=== PATIENT | female | born 1995 | race Caucasian/White ===

== ENCOUNTER 2016-10-12 08:35 | Emergency (ER) | payer OTHER ==
[2016-10-12 08:39] VITALS: BP 124/66; PULSE 104; RESP 20; TEMP 101.4
[2016-10-12] MEDS ORDERED: ACETAMINOPHEN TAB 500 MG TAB PO STA (09:02)
[2016-10-12] MEDS ORDERED: IBUPROFEN 600 MG TAB PO STA (09:02)
--- NOTE | 2016-10-12 09:05 | ED ---
URI HPI - General Chief Complaint: Upper Respiratory Infection Stated Complaint: Congestion Time Seen by Provider: 10/12/16 08:42 Source: patient Mode of arrival: ambulatory Limitations: no limitations - History of Present Illness Initial Comments: 20-year-old female patient presents to emergency department today for complaints of cough, congestion, sore throat, and fever that started on . Patient states that she was seen at [facility] yesterday she was swabbed for influenza which was negative. She is upset because they did not give her antibiotics and told her she only had a virus. Patient states that she did take Motrin consistently throughout the day yesterday, but woke up feeling worse today. Patient states that her chest feels tight, she is coughing up green sputum, and it hurts to cough. Patient denies any weakness, dizziness, abdominal pain, nausea, vomiting, back pain, dysuria, urinary urgency , urinary frequency, constipation, or diarrhea. Patient is currently on her menstrual cycle. - Related Data Home Medications Medication Instructions Recorded Confirmed Ibuprofen [Motrin] 1 tab PO TID PRN 04/02/16 04/02/16 Previous Rx's Medication Instructions Recorded Amoxicillin/Potassium Clav 1 each PO Q12HR #10 tab 04/02/16 [Augmentin 875-125 Tablet] Acetaminophen [Tylenol] 1,000 mg PO Q6H PRN #30 tab 10/12/16 Ibuprofen [Motrin] 600 mg PO Q6HR PRN #30 tab 10/12/16 Oseltamivir [Tamiflu] 75 mg PO Q12HR #10 cap 10/12/16 Allergies Allergy/AdvReac Type Severity Reaction Status Date / Time No Known Allergies Allergy Verified 10/12/16 08:39 Review of Systems ROS Statement: Those systems with pertinent positive or pertinent negative responses have been documented in the HPI. ROS Other: All systems not noted in ROS Statement are negative. Past Medical History Past Medical History: No Reported History History of Any Multi-Drug Resistant Organisms: None Reported Past Surgical History: Tonsillectomy Past Psychological History: Anxiety Smoking Status: Never smoker Past Alcohol Use History: None Reported Past Drug Use History: None Reported General Exam Limitations: no limitations General appearance: alert, in no apparent distress Eye exam: Present: normal appearance, PERRL, EOMI. Absent: scleral icterus, conjunctival injection, periorbital swelling ENT exam: Present: normal exam, mucous membranes moist, TM's normal bilaterally. Absent: normal oropharynx (Oropharyngeal erythema) Neck exam: Present: normal inspection. Absent: tenderness, meningismus, lymphadenopathy Respiratory exam: Present: normal lung sounds bilaterally. Absent: respiratory distress, wheezes, rales, rhonchi, stridor Cardiovascular Exam: Present: regular rate, normal rhythm, normal heart sounds. Absent: systolic murmur, diastolic murmur, rubs, gallop, clicks GI/Abdominal exam: Present: soft, normal bowel sounds. Absent: distended, tenderness, guarding, rebound, rigid Extremities exam: Present: normal inspection, full ROM, normal capillary refill. Absent: tenderness, pedal edema, joint swelling, calf tenderness Back exam: Present: normal inspection. Absent: CVA tenderness (R), CVA tenderness (L) Neurological exam: Present: alert, oriented X3, CN II-XII intact Psychiatric exam: Present: normal affect, normal mood Skin exam: Present: warm, dry, intact, normal color. Absent: rash Course Vital Signs 10/12/16 08:38 Temperature 101.4 F H Pulse Rate 104 H Respiratory 20 Rate Blood Pressure 124/66 O2 Sat by Pulse 99 Oximetry Medical Decision Making - Medical Decision Making 20-year-old female patient came in with complaints of upper respiratory symptoms and fever. X-ray of the chest was negative. Strep screen was negative. Patient was swabbed for influenza and was positive for influenza A. Patient be given a prescription for Tamiflu and discharged home to increase fluid intake and continue Tylenol and Motrin for pain and fever control. Patient instructed to return for any new, worsening, or concerning symptoms. Patient instructed to follow-up with primary care physician in one to 2 days. Patient verbalizes understanding and agrees with this plan. - Lab Data Lab Results 10/12/16 Range/Units 08:45 Influenza Type A RNA Detected H (Not Detectd) Influenza Type B (PCR) Not Detected (Not Detectd) - Radiology Data Radiology results: image reviewed Chest x-ray negative for any acute cardiopulmonary process. Disposition Clinical Impression: Influenza A Disposition: HOME SELF-CARE Condition: Stable Instructions: Influenza (ED) Additional Instructions: Increase clear fluids. Take Tylenol Motrin for pain or fever control. Complete Tamiflu prescription. Follow-up with primary care physician. Return for any worsening, new, or concerning symptoms. Prescriptions: Acetaminophen [Tylenol] 1,000 mg PO Q6H PRN #30 tab PRN Reason: Fever Ibuprofen [Motrin] 600 mg PO Q6HR PRN #30 tab PRN Reason: fever Oseltamivir [Tamiflu] 75 mg PO Q12HR #10 cap Referrals: Devon Petersen DO [Primary Care Provider] - 1-2 days Time of Disposition: 09:26
--- NOTE | 2016-10-12 09:31 | XR ---
EXAMINATION TYPE: XR chest 2V DATE OF EXAM ORDERED: 10/12/2016 9:22 AM HISTORY: Pain. REFERENCE: None. FINDINGS: The lungs are clear. Pleural spaces are clear. Heart size is normal. IMPRESSION: NORMAL CHEST.
== END 2016-10-12 09:33 | disposition home or self-care (01) ==
LOC: EC 08:35
DX: J10.1 Influenza due to other identified influenza virus with other respiratory manifestations (principal)
CPT/HCPCS: 71020; 87081; 87430; 87502; 99283

== ENCOUNTER → 2017-04-08 | Outpatient (CLI) | payer OTHER ==
--- NOTE | 2017-04-08 14:35 | XR ---
EXAMINATION TYPE: XR calcaneus 2V RT DATE OF EXAM: 04/08/2017 COMPARISON: NONE HISTORY: Right heel pain TECHNIQUE: 2 views are submitted FINDINGS: Osseous structures intact. Joint spaces preserved. IMPRESSION: 1. No osseous abnormality. If symptoms persist consider MRI.
== END ==
LOC: RADXRMAIN 14:09
PROVIDERS: ATTEND Family Medicine
DX: M79.671 Pain in right foot (principal)

== ENCOUNTER 2017-09-09 10:34 | Day surgery (SDC) | payer OTHER ==
[2017-09-05 15:33] VITALS: BMI 36.6
[~2017-09-09 10:34] MED LIST: HEPARIN SODIUM,PORCINE 5,000 UNIT/ML 1 ML VIAL SQ ONE; HYDROmorphone 0.5 MG/0.5 ML SYRINGE IVP PRN; LACTATED RINGERS 1,000 ML IV SCH; MIDAZOLAM 2 MG/2 ML VIAL IV PRN; ONDANSETRON 4 MG/2 ML VIAL IVP ONE; Pre Op ABX Message 1 EACH MISC MISCELLANE ONE
[2017-09-09] MEDS ORDERED: LIDOCAINE 1% 20 ML VIAL (10MG/ML) FOR IV START INTRADERMA ONE (12:44)
[2017-09-09] MEDS ORDERED: DEXAMETHASONE SOD PHOSPHATE 10 MG/ML 1 ML VIAL IV ONE (13:04)
[2017-09-09] MEDS ORDERED: HEPARIN SODIUM,PORCINE 5,000 UNIT/ML 1 ML VIAL SQ ONE (13:30)
[2017-09-09] MEDS ORDERED: SUCCINYLCHOLINE CHLORIDE 100 MG/5 ML SYR IV ONE (15:50)
[2017-09-09] MEDS ORDERED: fentaNYL (PF) 50 MCG/ML 2 ML AMP ONE (15:50)
[2017-09-09] MEDS ORDERED: KETOROLAC 30 MG/ML 1 ML VIAL ONE (15:50)
[2017-09-09] MEDS ORDERED: LIDOCAINE 1% INJ 10MG/ML (20 ML MDV) ONE (15:50)
[2017-09-09] MEDS ORDERED: MIDAZOLAM 2 MG/2 ML VIAL ONE (15:50)
[2017-09-09] MEDS ORDERED: PROPOFOL 10 MG/ML 20 ML VIAL IV ONE (15:50)
[2017-09-09] MEDS ORDERED: LACTATED RINGERS 1,000 ML IV ONE (16:00)
[2017-09-09] MEDS ORDERED: SODIUM CHLORIDE 0.9% 50 ML with ceFAZolin 2,000 MG IV ONE ×2 (16:00)
--- NOTE | 2017-09-09 16:00 | P.PN ---
Progress Note - Text Patient also complains of a cystic lesion on the left lower abdomen. This is going to be excised as well. We've discussed risks and benefits and she wishes to proceed.
[2017-09-09] MEDS ORDERED: LIDOCAINE 1% INJ 10MG/ML (20 ML MDV) SQ ONE (16:10)
--- NOTE | 2017-09-09 16:31 | P.PCN ---
Date of Procedure: 09/09/17 Preoperative Diagnosis: cystic lesion Right breast and left lower abdomen Postoperative Diagnosis: same Procedure(s) Performed: excision of cystic lesions left lower abdomen and right breast Anesthesia: SMOOTH Surgeon: Felipa Schrader Estimated Blood Loss (ml): 5 IV fluids (ml): 600 Pathology: other (cystic lesions) Condition: stable Disposition: PACU Indications for Procedure: cystic lesions which intermittently get infected Operative Findings: cystic lesions times two Description of Procedure: Patient was taken to the operating room and following induction of anesthesia the right breast and left lower abdomen were prepped and draped in a sterile fashion. Incision was made around the lesion of the left lower abdomen patient performed. This was approximately 2.5 cm in size. Excision was through the skin and subcutaneous tissue around the cystic area. Following this the wound was irrigated deep tissues were closed with 2-0 Vicryl suture in the skin was closed with nylon suture. The breast was then approached. The breast lesion was addressed. Wide excision of the lesion was performed. After this the wound was irrigated. Deep tissues were closed using a Vicryl suture. Skin was closed using a nylon suture. The lesion size was 2-1/2 cm. All instrument and sponge counts were correct at the end of the case.
--- NOTE | 2017-09-09 16:32 | P.DS ---
Providers Attending physician: Felipa Schrader Primary care physician: Devon Petersen Plan - Discharge Summary New Discharge Prescriptions: No Action Ibuprofen [Motrin] 1 tab PO TID PRN PRN Reason: Pain Ranitidine HCl [Zantac] 75 mg PO BID PRN PRN Reason: GERD Dextroamphetamine/Amphetamine [Adderall] 30 mg PO BID Discharge Medication List Ibuprofen [Motrin] 1 tab PO TID PRN 04/02/16 [History] Dextroamphetamine/Amphetamine [Adderall] 30 mg PO BID 09/05/17 [History] Ranitidine HCl [Zantac] 75 mg PO BID PRN 09/05/17 [History] Activity/Diet/Wound Care/Special Instructions: do not drive today may shower after 24 hours Discharge Disposition: HOME SELF-CARE
[2017-09-09 16:41] VITALS: TEMP 98.4
[2017-09-09 17:23] VITALS: PULSE 90; RESP 18
[2017-09-09 17:38] VITALS: BP 110/78
== END 2017-09-09 17:45 | disposition home or self-care (01) ==
LOC: OR 10:34
PROVIDERS: ATTEND Surgery
DX: L72.0 Epidermal cyst (principal)
CPT/HCPCS: 19120; 11403; 81025; 88304; 87070; 87205; J2250; J1644; J1100; J2405; J2001; J3010; J1885; J0690; J0330; J2704

== ENCOUNTER → 2018-06-17 | Outpatient (CLI) | payer OTHER | END | disposition home or self-care (01) | LOC: LABWHC1 11:26 | PROVIDERS: ATTEND Family Medicine | DX: Z34.90 Encounter for supervision of normal pregnancy, unspecified, unspecified trimester (principal) | CPT/HCPCS: 36415; 84439; 84443 ==

== ENCOUNTER → 2018-06-17 | Outpatient (CLI) | payer OTHER ==
--- NOTE | 2018-06-17 13:30 | US ---
EXAMINATION TYPE: Transabdominal DATE OF EXAM: 10/21/17 COMPARISON: NONE CLINICAL HISTORY: [id number] confirm dates and viability. EXAM PERFORMED: Transabdominal (TA) EXAM MEASUREMENTS: GESTATIONAL AGE / DATING Physician Established: Not yet established ( weeks/ days) EDC: Dates by LMP: (11 weeks/4 days) EDC: 06 Dates by First Scan: No previous this is first scan ( weeks/ days) EDC: Dates by Current Scan for: (11 weeks/ 5 days) EDC: 01/05/2019 MATERNAL ANATOMY Uterus: 12.4 x 9.1 x 6.8 cm Right Ovary: 2.9 x 2.3 x 1.5 cm Left Ovary: 2.9 x 2.3 x 2.4 cm Post CDS / Adnexa: wnl Presence of free fluid: no Presence of corpus luteal cyst: no Presence of subchorionic bleed: no GESTATION / SURVEY CRL: 5.0 cm (11 weeks/5 days) MSD: 4.6 cm (10 weeks/ 3 days) Yolk Sac (normal less than 6mm): not seen Heart Rate: 157 bpm Rhythm: Normal IUP: Viable IUP Date of LMP: 03/28/2018 Beta HcG (if available): IMPRESSION: Single viable intrauterine .
== END ==
LOC: RADUSWWP 10:58
PROVIDERS: ATTEND Obstetrics & Gynecology
DX: Z36.9 Encounter for antenatal screening, unspecified (principal)
CPT/HCPCS: 76801

== ENCOUNTER 2018-07-03 12:47 | Emergency (ER) | payer OTHER ==
[2018-07-03 13:02] VITALS: TEMP 98.1
--- NOTE | 2018-07-03 13:54 | ED ---
URI HPI - General Chief Complaint: Upper Respiratory Infection Stated Complaint: head congestion Time Seen by Provider: 07/03/18 13:10 Source: patient, RN notes reviewed, old records reviewed Mode of arrival: ambulatory Limitations: no limitations - History of Present Illness Initial Comments: Patient is a 20-year-old female, currently 14 weeks . Presents today with upper respiratory congestion for the past 3 days. Patient that she is a sore throat. Patient reports no coughing. She has not taken any Motrin Tylenol. Complains of bodyaches. Patient states she had her time sleeping due to just general discomfort. She denies abdominal pain. Denies any vaginal bleeding or discharge. Patient denies any dysuria or hematuria changes in stools. - Related Data Home Medications Medication Instructions Recorded Confirmed Ibuprofen [Motrin] 1 tab PO TID PRN 04/02/16 09/09/17 Dextroamphetamine/Amphetamine 30 mg PO BID 09/05/17 09/09/17 [Adderall] Ranitidine HCl [Zantac] 75 mg PO BID PRN 09/05/17 09/09/17 Previous Rx's Medication Instructions Recorded Amoxicillin 500 mg PO TID #21 capsule 07/03/18 Fluticasone Propionate [Flonase 1 spray EA NOSTRIL DAILY #1 ml 07/03/18 Allergy Relief] Allergies Allergy/AdvReac Type Severity Reaction Status Date / Time prednisone Allergy Rash/Hives Verified 07/03/18 13:02 Review of Systems ROS Statement: Those systems with pertinent positive or pertinent negative responses have been documented in the HPI. ROS Other: All systems not noted in ROS Statement are negative. Past Medical History Past Medical History: Asthma, GERD/Reflux, Skin Disorder Additional Past Medical History / Comment(s): HEART MURMUR, ASTHMA CHILD. CYSTS RT LOWER BREAST, LT LOWER ABD. History of Any Multi-Drug Resistant Organisms: None Reported Past Surgical History: Tonsillectomy Additional Past Surgical History / Comment(s): EGD. Past Anesthesia/Blood Transfusion Reactions: No Reported Reaction Past Psychological History: ADD/ADHD, Anxiety, Panic Disorder Smoking Status: Never smoker - Past Family History Mother Family Medical History: No Reported History General Exam - General Exam Comments Initial Comments: 20-year-old female. Alert and oriented. Patient appears in no acute distress. General: Well appearing, well nourished, in no distress. Oriented x 3, normal mood and affect . Ambulating without difficulty. Skin: Good turgor, no rash, unusual bruising or prominent lesions Hair: Normal texture and distribution. HEENT: Head: Normocephalic, atraumatic, no visible or palpable masses, depressions, or scaring. Eyes: Visual acuity intact, conjunctiva clear, sclera non-icteric, EOM intact, PERRL. Ears: EACs clear, TMs translucent & cone of light visualized. hearing intact. Nose: No external lesions, mucosa non-inflamed, septum and turbinates normal Mouth: Mucous membranes moist, no mucosal lesions. Teeth/Gums: No obvious caries or periodontal disease. No gingival inflammation or significant resorption. Pharynx: Erythematous oropharynx. Evidence of slight exudates noted. Tonsillar adenopathy. Neck: Supple, anterior cervical and tonsillar adenopathy Heart: No cardiomegaly or thrills; regular rate and rhythm, no murmur or gallop Lungs: Clear to auscultation and percussion Abdomen: Bowel sounds normal, no tenderness, organomegaly, masses, or hernia Extremities: No amputations or deformities, cyanosis, edema or varicosities, peripheral pulses intact Musculoskeletal: Normal gait and station. No misalignment, asymmetry, crepitation, defects, tenderness, masses, effusions, decreased range of motion, instability, atrophy or abnormal strength or tone in the head, neck, spine, ribs , pelvis or extremities. Neurologic: CN 2-12 normal. Sensation to pain, touch, and proprioception normal. DTRs normal in upper and lower extremities. No pathologic reflexes. Psychiatric: Oriented X3, intact recent and remote memory, judgment and insight , normal mood and affect. Limitations: no limitations Course Vital Signs 07/03/18 12:58 Temperature 98.1 F Pulse Rate 105 H Respiratory 18 Rate Blood Pressure 124/71 O2 Sat by Pulse 99 Oximetry Medical Decision Making - Medical Decision Making This patient's 22-year-old female currently 14 weeks with 3 days of upper respiratory congestion, sore throat. She is erythematous her parents with evidence of exudate. Rapid strep and culture obtained. This time we'll treat the Patient for streptococcal pharyngitis. We'll discharge her with amoxicillin. Patient also advised to use Benadryl and Tylenol for pain and congestion. Also will prescribe the Patient Flonase for nasal congestion. I discussed that she should follow-up with her FABRICATION ENGINEER or primary care physician. All questions answered return parameters were discussed. Given a note for work. Disposition Clinical Impression: Upper respiratory infection, Pharyngitis Disposition: HOME SELF-CARE Condition: Good Instructions: Upper Respiratory Infection (ED) Additional Instructions: Patient advised to follow-up with primary care physician. Return to emergency department if any alarming signs or symptoms occur. Rest, remain hydrated. Patient can take Tylenol for fevers and pain as well as Benadryl for congestion. Use the nasal spray. Take the antibiotic as prescribed pending culture. Prescriptions: Amoxicillin 500 mg PO TID #21 capsule Fluticasone Propionate [Flonase Allergy Relief] 1 spray EA NOSTRIL DAILY #1 ml Is patient prescribed a controlled substance at d/c from ED?: No Referrals: Devon Petersen DO [Primary Care Provider] - 1-2 days Time of Disposition: 13:53
[2018-07-03 14:34] VITALS: BP 109/59; PULSE 79; RESP 16
== END 2018-07-03 14:13 | disposition home or self-care (01) ==
LOC: EC 12:47
DX: O99.512 Diseases of the respiratory system complicating pregnancy, second trimester (principal); J02.0 Streptococcal pharyngitis; O99.342 Other mental disorders complicating pregnancy, second trimester; F90.9 Attention-deficit hyperactivity disorder, unspecified type; Z88.8 Allergy status to other drugs, medicaments and biological substances; Z79.899 Other long term (current) drug therapy; Z90.89 Acquired absence of other organs; Z3A.14 14 weeks gestation of pregnancy
CPT/HCPCS: 87081; 87430; 99284

== ENCOUNTER 2018-08-09 19:51 | Observation (INO) | payer OTHER ==
[2018-08-09] MEDS ORDERED: SODIUM CHLORIDE 0.9% 1,000 ML IV STA ×2 (20:23→20:34)
[2018-08-09] MEDS ORDERED: ONDANSETRON 4 MG/2 ML VIAL IVP STA (20:34)
--- NOTE | 2018-08-09 20:38 | ED ---
General Adult HPI - General Chief complaint: Nausea/Vomiting/Diarrhea Stated complaint: Vomiting Source: patient, family, RN notes reviewed Mode of arrival: ambulatory Limitations: no limitations - History of Present Illness Initial comments: Chief complaint and history of present illness a 22-year-old female presents emergency room with vomiting several times today. She is 20 weeks . No blood in the vomit. No pain. - Related Data Home Medications Medication Instructions Recorded Confirmed Pnv No.95/Ferrous Fum/Folic AC 1 tab PO HS 08/09/18 08/09/18 [ Multivitamin Tablet] Allergies Allergy/AdvReac Type Severity Reaction Status Date / Time prednisone Allergy Rash/Hives Verified 08/09/18 20:12 Review of Systems ROS Statement: Those systems with pertinent positive or pertinent negative responses have been documented in the HPI. Review of systems no headache or chest pain or shortness of breath. The patient reports he vomited at least 5 times over the past several hours. Denies having had any bad food no one else is sick in the house no diarrhea. No abdominal pain. Patient denies any chronic medical problems she is G1 para 0. Denies a family history of chronic medical problems. She has had a tonsillectomy. She is nonsmoker nondrinker. ROS Other: All systems not noted in ROS Statement are negative. Past Medical History Past Medical History: Asthma, GERD/Reflux, Skin Disorder Additional Past Medical History / Comment(s): HEART MURMUR, ASTHMA CHILD. CYSTS RT LOWER BREAST, LT LOWER ABD. History of Any Multi-Drug Resistant Organisms: None Reported Past Surgical History: Tonsillectomy Additional Past Surgical History / Comment(s): EGD. Past Anesthesia/Blood Transfusion Reactions: No Reported Reaction Past Psychological History: ADD/ADHD, Anxiety, Panic Disorder Smoking Status: Never smoker Past Alcohol Use History: None Reported Past Drug Use History: None Reported - Past Family History Mother Family Medical History: No Reported History General Exam - General Exam Comments Initial Comments: General: The patient is awake and alert, he requires he's vomiting. The patient is 20 weeks . Vital signs shows temperature 98.2 pulse 92 respiratory rate 16 pulse ox 99% room air blood pressure 122/85.. Eye: Pupils are equal, round and reactive to light, extra-ocular movements are intact ; no signs of icterus Ears, nose, mouth and throat: There are moist mucous membranes. The neck is supple,. Cardiovascular: There is a regular rate and rhythm.. Respiratory: Lungs are clear to auscultation, respirations are non-labored, breath sounds are equal. No wheezes, stridor, rales, or rhonchi. Gastrointestinal: Soft, non-distended, non-tender abdomen without masses or organomegaly noted. There is no rebound or guarding present. No CVA tenderness. Bowel sounds are unremarkable. Patient is 20 weeks . Nausea vomiting. Musculoskeletal: Normal ROM, no tenderness, There is no pedal edema. There is no calf tenderness or swelling. Sensation intact.. Neurological: Alert and oriented no neuro deficits. Skin: Skin is warm and dry and no rashes or lesions are noted. Psychiatric: Cooperative, Limitations: no limitations Course Vital Signs 08/09/18 08/09/18 19:53 22:40 Temperature 98.2 F 98 F Pulse Rate 92 77 Respiratory 16 18 Rate Blood Pressure 122/85 124/84 O2 Sat by Pulse 99 97 Oximetry Medical Decision Making - Medical Decision Making Medical decision making; this is a 22-year-old female here with her . The patient is 1 para 0. She is 20 weeks along in her . She started having nausea vomiting today. She's vomited 8-10 times. On emergency room the patient was given Zofran, IV fluids. She continued to vomit. She was given IV Reglan. The patient's labs show white count of 15 hemoglobin 12.2 hematocrit of 40. Potassium is 4.3 BUN 10 creatinine 0.51 GFR greater than 90. The patient's urine shows large leuk esterase, 1 red cell, 107 white cells. She also has 17 squamous cells positive bacteria. SENIOR INTERIOR DESIGNER nurses evaluated the patient in emergency room, heart tones 140. Patient is not having any vaginal discharge or bleeding. No lower abdominal pain. No contractions. The case discussed with Dr. Felix, on-call for Dr. Schreiber. She wants the patient started on Ancef 1 g every 6H IV piggyback. Admitted for hyperemesis gravidarum. She wants the patient tested for influenza . The patient's influenza test were negative. The patient will be sent to labor and delivery started on Ancef 1 g IV every 6H - Lab Data Result diagrams: 08/09/18 20:01 08/09/18 20:01 Lab Results 08/09/18 08/09/18 08/09/18 Range/Units 20:01 20:01 21:34 WBC 15.4 H (3.8-10.6) k/uL RBC 4.71 (3.80-5.40) m/uL Hgb 12.8 (11.4-16.0) gm/dL Hct 40.4 (34.0-46.0) % MCV 85.8 (80.0-100.0) fL MCH 27.3 (25.0-35.0) pg MCHC 31.8 (31.0-37.0) g/dL RDW 13.2 (11.5-15.5) % Plt Count 247 (150-450) k/uL Neutrophils % 80 % Lymphocytes % 14 % Monocytes % 4 % Eosinophils % 1 % Basophils % 0 % Neutrophils # 12.4 H (1.3-7.7) k/uL Lymphocytes # 2.2 (1.0-4.8) k/uL Monocytes # 0.6 (0-1.0) k/uL Eosinophils # 0.1 (0-0.7) k/uL Basophils # 0.0 (0-0.2) k/uL Sodium 138 (137-145) mmol/L Potassium 4.3 (3.5-5.1) mmol/L Chloride 108 H (98-107) mmol/L Carbon Dioxide 21 L (22-30) mmol/L Anion Gap 9 mmol/L BUN 10 (7-17) mg/dL Creatinine 0.51 L (0.52-1.04) mg/dL Est GFR (CKD-EPI)AfAm >90 (>60 ml/min/1.73 sqM) Est GFR (CKD-EPI)NonAf >90 (>60 ml/min/1.73 sqM) Glucose 94 (74-99) mg/dL Calcium 9.5 (8.4-10.2) mg/dL Total Bilirubin 0.5 (0.2-1.3) mg/dL AST 20 (14-36) U/L ALT 26 (9-52) U/L Alkaline Phosphatase 47 (38-126) U/L Total Protein 6.8 (6.3-8.2) g/dL Albumin 3.9 (3.5-5.0) g/dL Urine Color Yellow Urine Appearance Cloudy H (Clear) Urine pH 6.0 (5.0-8.0) Ur Specific Daggett 1.030 (1.001-1.035) Urine Protein 1+ H (Negative) Urine Glucose (UA) Negative (Negative) Urine Ketones 1+ H (Negative) Urine Blood Negative (Negative) Urine Nitrite Negative (Negative) Urine Bilirubin Negative (Negative) Urine Urobilinogen <2.0 (<2.0) mg/dL Ur Leukocyte Esterase Large H (Negative) Urine RBC 7 H (0-5) /hpf Urine WBC 107 H (0-5) /hpf Ur Squamous Epith Cells 17 H (0-4) /hpf Amorphous Sediment Occasional H (None) /hpf Urine Bacteria Many H (None) /hpf Hyaline Casts 7 H (0-2) /lpf Urine Mucus Many H (None) /hpf Influenza Type A RNA (Not Detectd) Influenza Type B (PCR) (Not Detectd) 08/10/18 Range/Units 00:12 WBC (3.8-10.6) k/uL RBC (3.80-5.40) m/uL Hgb (11.4-16.0) gm/dL Hct (34.0-46.0) % MCV (80.0-100.0) fL MCH (25.0-35.0) pg MCHC (31.0-37.0) g/dL RDW (11.5-15.5) % Plt Count (150-450) k/uL Neutrophils % % Lymphocytes % % Monocytes % % Eosinophils % % Basophils % % Neutrophils # (1.3-7.7) k/uL Lymphocytes # (1.0-4.8) k/uL Monocytes # (0-1.0) k/uL Eosinophils # (0-0.7) k/uL Basophils # (0-0.2) k/uL Sodium (137-145) mmol/L Potassium (3.5-5.1) mmol/L Chloride (98-107) mmol/L Carbon Dioxide (22-30) mmol/L Anion Gap mmol/L BUN (7-17) mg/dL Creatinine (0.52-1.04) mg/dL Est GFR (CKD-EPI)AfAm (>60 ml/min/1.73 sqM) Est GFR (CKD-EPI)NonAf (>60 ml/min/1.73 sqM) Glucose (74-99) mg/dL Calcium (8.4-10.2) mg/dL Total Bilirubin (0.2-1.3) mg/dL AST (14-36) U/L ALT (9-52) U/L Alkaline Phosphatase (38-126) U/L Total Protein (6.3-8.2) g/dL Albumin (3.5-5.0) g/dL Urine Color Urine Appearance (Clear) Urine pH (5.0-8.0) Ur Specific [place]gett (1.001-1.035) Urine Protein (Negative) Urine Glucose (UA) (Negative) Urine Ketones (Negative) Urine Blood (Negative) Urine Nitrite (Negative) Urine Bilirubin (Negative) Urine Urobilinogen (<2.0) mg/dL Ur Leukocyte Esterase (Negative) Urine RBC (0-5) /hpf Urine WBC (0-5) /hpf Ur Squamous Epith Cells (0-4) /hpf Amorphous Sediment (None) /hpf Urine Bacteria (None) /hpf Hyaline Casts (0-2) /lpf Urine Mucus (None) /hpf Influenza Type A RNA Not Detected (Not Detectd) Influenza Type B (PCR) Not Detected (Not Detectd) Disposition Clinical Impression: Hyperemesis gravidarum before end of 22 week gestation with carbohydrate depletion, UTI (urinary tract infection) Disposition: ADMITTED IP TO THIS HOSP Condition: Fair Is patient prescribed a controlled substance at d/c from ED?: No Referrals: Devon Petersen DO [Primary Care Provider] - 1-2 days
[2018-08-09 21:01] LABS: Basophils % (A) 0 %; Eosinophils # (A) 0.1 k/uL (0-0.7); Eosinophils % (A) 1 %; HCT 40.4 % (34.0-46.0); HGB 12.8 gm/dL (11.4-16.0); Lymphocytes # (A) 2.2 k/uL (1.0-4.8); Lymphocytes % (A) 14 %; MCH 27.3 pg (25.0-35.0); MCHC 31.8 g/dL (31.0-37.0); MCV 85.8 fL (80.0-100.0); Monocytes # (A) 0.6 k/uL (0-1.0); Monocytes % (A) 4 %; Neutrophils # (A) 12.4 k/uL (1.3-7.7); Neutrophils % (A) 80 %; Platelet Count 247 k/uL (150-450); RBC 4.71 m/uL (3.80-5.40); RDW 13.2 % (11.5-15.5); WBC 15.4 k/uL (3.8-10.6)
[2018-08-09 21:03] LABS: ALT 26 U/L (9-52); AST 20 U/L (14-36); Albumin 3.9 g/dL (3.5-5.0); Alkaline Phosphatase 47 U/L (38-126); Anion Gap 9 mmol/L; Blood Urea Nitrogen 10 mg/dL (7-17); Calcium 9.5 mg/dL (8.4-10.2); Carbon Dioxide 21 mmol/L (22-30); Chloride 108 mmol/L (98-107); Glucose 94 mg/dL (74-99); Potassium 4.3 mmol/L (3.5-5.1); Sodium 138 mmol/L (137-145); Total Bilirubin 0.5 mg/dL (0.2-1.3); Total Protein 6.8 g/dL (6.3-8.2)
[2018-08-09 22:00] LABS: Amorphous Sediment,Urine Occasional /hpf; Appearance,Urine Cloudy (Clear); Bacteria,Urine Many /hpf; Bilirubin,Urine Negative (Negative); Blood,Urine Negative (Negative); Color,Urine Yellow; Glucose,Urine (UA) Negative (Negative); Hyaline Casts,Urine 7 /lpf (0-2); Ketones,Urine 1+ (Negative); Leukocyte Esterase,Urine Large (Negative); Mucus,Urine Many /hpf; Nitrite,Urine Negative (Negative); Protein,Urine 1+ (Negative); RBC,Urine 7 /hpf (0-5); Squamous Epithelial Cell,Urine 17 /hpf (0-4); Urobilinogen,Urine <2.0 mg/dL (<2.0); WBC,Urine 107 /hpf (0-5)
[2018-08-09] MEDS ORDERED: METOCLOPRAMIDE 5 MG/ML 2 ML VIAL IVP STA (23:06)
[2018-08-10] MEDS ORDERED: ceFAZolin 1,000 MG in DEXTROSE/WATER 1 50ML.BAG IVPB STA (01:20)
[2018-08-10] MEDS ORDERED: METOCLOPRAMIDE 5 MG/ML 2 ML VIAL IVP PRN (01:20)
[2018-08-10] MEDS ORDERED: NALOXONE 0.4 MG/ML 1 ML VIAL IV PRN (01:20)
[2018-08-10] MEDS: SODIUM CHLORIDE 0.9% 1,000 ML IV SCH ×4 (01:33→20:39)
[2018-08-10] MEDS ORDERED: ONDANSETRON 4 MG/2 ML VIAL IVP PRN (02:10)
[2018-08-10 03:16] VITALS: BMI 37.8
--- NOTE | 2018-08-10 03:25 | P.HPOB ---
History of Present Illness H&P Date: 08/10/18 Chief Complaint: Nausea and vomitting 22 year old presents at 20 weeks with intractable N/V. 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 The nausea started around 3 PM and she started vomiting. In the emergency room she had Zofran and Reglan was still vomiting up Popsicle. She is negative for influenza A and B. She is complaining of some mild back pain which could be related to the or a UTI. Urine culture has been ordered. She believes she may have eaten something bad, she did have breakfast burritos from [employer] yesterday. Good movement and no loss of fluid or vaginal bleeding. heart tones 160s. Review of Systems All systems: negative Constitutional: Denies chills, Denies fever Eyes: denies blurred vision, denies pain Ears, nose, mouth and throat: Denies headache, Denies sore throat Cardiovascular: Denies chest pain, Denies shortness of breath Respiratory: Denies cough Gastrointestinal: Denies abdominal pain, Denies diarrhea, Denies nausea, Denies vomiting Genitourinary: Denies dysuria, Denies hematuria Musculoskeletal: Denies myalgias Integumentary: Denies pruritus, Denies rash Neurological: Denies numbness, Denies weakness Psychiatric: Denies anxiety, Denies depression Endocrine: Denies fatigue, Denies weight change Past Medical History Past Medical History: Asthma, GERD/Reflux, Skin Disorder Additional Past Medical History / Comment(s): HEART MURMUR, ASTHMA CHILD. CYSTS RT LOWER BREAST, LT LOWER ABD. Obstetric history: This is her first and she's having care with Dr. Escalona. History of Any Multi-Drug Resistant Organisms: None Reported Past Surgical History: Tonsillectomy Additional Past Surgical History / Comment(s): EGD. Past Anesthesia/Blood Transfusion Reactions: No Reported Reaction Past Psychological History: ADD/ADHD, Anxiety, Panic Disorder Smoking Status: Never smoker Past Alcohol Use History: None Reported Past Drug Use History: None Reported - Past Family History Mother Family Medical History: No Reported History Medications and Allergies Home Medications Medication Instructions Recorded Confirmed Type Pnv No.95/Ferrous Fum/Folic AC 1 tab PO HS 08/09/18 08/09/18 History [ Multivitamin Tablet] Allergies Allergy/AdvReac Type Severity Reaction Status Date / Time prednisone Allergy Rash/Hives Verified 08/09/18 20:12 Exam Osteopathic Statement: *. No significant issues noted on an osteopathic structural exam other than those noted in the History and Physical/Consult. Vital Signs Temp Pulse Pulse Resp BP BP Pulse Ox 08/10/18 02:45 98.1 F 91 18 119/61 98 08/10/18 02:00 98 F 79 20 129/79 97 08/10/18 01:00 98 F 77 18 133/73 97 08/09/18 22:40 98 F 77 18 124/84 97 08/09/18 19:53 98.2 F 92 16 122/85 99 Intake and Output 08/09/18 08/09/18 08/10/18 14:59 22:59 06:59 Output Total 30 Balance -30 Output: Emesis 30 Other: Weight 93.894 kg 93.894 kg Heart: Regular rate and rhythm Lungs: Clear to auscultation bilaterally Abdomen: Soft, nontender Extremities: Negative Homans sign Results Result Diagrams: 08/09/18 20:01 08/09/18 20:01 Abnormal Lab Results - Last 24 Hours (Table) 08/09/18 08/09/18 08/09/18 Range/Units 20:01 20:01 21:34 WBC 15.4 H (3.8-10.6) k/uL Neutrophils # 12.4 H (1.3-7.7) k/uL Chloride 108 H (98-107) mmol/L Carbon Dioxide 21 L (22-30) mmol/L Creatinine 0.51 L (0.52-1.04) mg/dL Urine Appearance Cloudy H (Clear) Urine Protein 1+ H (Negative) Urine Ketones 1+ H (Negative) Ur Leukocyte Esterase Large H (Negative) Urine RBC 7 H (0-5) /hpf Urine WBC 107 H (0-5) /hpf Ur Squamous Epith Cells 17 H (0-4) /hpf Amorphous Sediment Occasional H (None) /hpf Urine Bacteria Many H (None) /hpf Hyaline Casts 7 H (0-2) /lpf Urine Mucus Many H (None) /hpf Assessment and Plan (1) Intractable nausea and vomiting Current Visit: Yes Status: Acute Code(s): R11.2 - NAUSEA WITH VOMITING, UNSPECIFIED SNOMED Code(s): 478721000 (2) UTI (urinary tract infection) Current Visit: Yes Status: Acute Code(s): N39.0 - URINARY TRACT INFECTION, SITE NOT SPECIFIED SNOMED Code(s): 85510413 (3) 20 weeks gestation of Current Visit: Yes Status: Acute Code(s): Z3A.20 - 20 WEEKS GESTATION OF SNOMED Code(s): 18746756 Plan: 1. Admit to family place 2. IV fluids 3. Antiemetics as necessary 4. IV antibiotics until she tolerates oral medications.
[2018-08-10] MEDS: ceFAZolin 1,000 MG in DEXTROSE/WATER 1 50ML.BAG IVPB SCH ×3 (07:34→19:28)
[2018-08-10] MEDS ORDERED: ACETAMINOPHEN TAB 325 MG TAB PO PRN (14:19)
--- NOTE | 2018-08-10 15:41 | US ---
EXAMINATION TYPE: US OB anatomy transabd DATE OF EXAM: 08/10/2018 COMPARISON: 06/17/2018 HISTORY: pt already had a u/s scheduled for today as outpt TECHNIQUE: Transabdominal (TA) EXAM MEASUREMENTS: GESTATIONAL AGE / DATING Physician Established: (19 weeks/2 days) EDC: 01/02/2019 Dates by LMP: (19 weeks/2 days) EDC: 01/02/2019 Dates by First Scan: (18 weeks/6 days) EDC: 01/05/2019 Dates by Current Scan for: (18 weeks/6 days) EDC: 01/05/2019 SURVEY IUP: Single PLACENTA: Anterior PREVIA: No previa ALANNA: 14.34 cm Normal CERVICAL LENGTH (transabdominal: norm > 3.0cm): 3.5 cm BIOMETRY PRESENTATION: Variable LIE: Transverse lie with head maternal Left BPD: 4.3 cm 18 weeks / 6 days HC: 16.6 cm 19 weeks / 2 days AC: 13.7 cm 19 weeks / 1 days FL: 2.9 cm 19 weeks / 0 days ESTIMATED WEIGHT IN GRAMS: 274.85 grams ESTIMATED WEIGHT IN LBS/OZ: 0 lbs. 10 oz. WEIGHT PERCENTAGE BASED ON ESTABLISHED DATE: 35.6 % HC/AC: 1.21 Normal FL/AC: 21.4 Normal HEART RATE: 145 bpm . RHYTHM: Normal ANATOMY SEEN (within normal limits): * Lateral Vent (< 1 cm) 0.7 cm * Cisterna Magna (< 1.1 cm) 0.7 cm * Nuchal Fold (< 0.6 cm) 0.4 cm * Cerebellum (varies with age) 2.1 cm Choroid Plexus (bilateral) Midline Falx Cavus Septi Pellucidi Outflow tracts: LVOT Stomach Situs Nose / Lips Diaphragm Kidneys (bilateral) Bladder Cord Insert Three Vessel Cord Arms (bilateral) Legs (bilateral) ANATOMY NOT SEEN well due to position: Four Chamber Heart RVOT Longitudinal Spine Transverse Spine MATERNAL WALL MEASUREMENT: 3.9 cm from skin to anterior uterine wall (if exam limited due to body dutta bitus). Viable IUP, measurements consistent with dates. Patient scanned while inpatient in hospital, told the patient at time of exam that they would need to call and schedule a return visit to image remaining anatomy. IMPRESSION: Limited assessment of anatomy as discussed above with a viable intrauterine consisten t with the reported dates and an EDC of 01/05/2019
[2018-08-11 00:39] VITALS: BP 91/61; PULSE 68; RESP 18; TEMP 98.3
[2018-08-11] MEDS: ceFAZolin 1,000 MG in DEXTROSE/WATER 1 50ML.BAG IVPB SCH ×2 (01:52→07:43)
--- NOTE | 2018-08-11 09:42 | P.DS ---
Providers Date of admission: 08/10/18 01:19 Expected date of discharge: 08/11/18 Attending physician: Viral Escalona Primary care physician: Devon Petersen [facility] Course: Patient is doing very well today. Vital signs are stable and afebrile. No further temperatures. She is on antibiotics and would discharged home with prescription for Keflex. She's had no more nausea or vomiting and feels stable for discharge. Most likely her emesis 2 days ago was due to something she ate based on her description of symptoms and at this time she has no further symptoms. She will return if there is worsening of symptoms. heart tones have been noted. Heart regular, lungs clear, extremities without pain. Follow-up at next appointment or as needed. Patient Condition at Discharge: Good Plan - Discharge Summary New Discharge Prescriptions: New Cephalexin [Keflex] 500 mg PO Q6HR #20 cap No Action Pnv No.95/Ferrous Fum/Folic AC [ Multivitamin Tablet] 1 tab PO HS Discharge Medication List Pnv No.95/Ferrous Fum/Folic AC [ Multivitamin Tablet] 1 tab PO HS [History] Cephalexin [Keflex] 500 mg PO Q6HR #20 cap 08/11/18 [Rx] Follow up Appointment(s)/Referral(s): Devon Petersen DO [Primary Care Provider] - 1-2 days Activity/Diet/Wound Care/Special Instructions: Return with worsening of symptoms Discharge Disposition: HOME SELF-CARE
== END 2018-08-11 10:15 | disposition home or self-care (01) ==
LOC: EC 19:51 → 4FBP 08-10 01:19
PROVIDERS: ADMIT Obstetrics & Gynecology; ATTEND Obstetrics & Gynecology
DX: O21.1 Hyperemesis gravidarum with metabolic disturbance (principal); O23.42 Unspecified infection of urinary tract in pregnancy, second trimester; O99.612 Diseases of the digestive system complicating pregnancy, second trimester; K21.9 Gastro-esophageal reflux disease without esophagitis; O99.512 Diseases of the respiratory system complicating pregnancy, second trimester; J45.909 Unspecified asthma, uncomplicated; Z3A.20 20 weeks gestation of pregnancy; Z88.8 Allergy status to other drugs, medicaments and biological substances
CPT/HCPCS: 96376; 96366 ×2; 96361; 96365; 96375; 99284; 36415; 80053; 85025; 81001; 87086; 87502; 76811; G0378 ×2; J2765; J2405 ×2; J0690 ×2

== ENCOUNTER 2018-10-16 20:30 | Outpatient (CLI) | payer OTHER ==
[2018-10-16 21:08] LABS: Appearance,Urine Cloudy (Clear); Bacteria,Urine Few /hpf; Bilirubin,Urine Negative (Negative); Blood,Urine Negative (Negative); Color,Urine Yellow; Glucose,Urine (UA) Negative (Negative); Ketones,Urine Negative (Negative); Leukocyte Esterase,Urine Large (Negative); Mucus,Urine Few /hpf; Nitrite,Urine Negative (Negative); PH, Urine 5.5 (5.0-8.0); Protein,Urine 1+ (Negative); RBC,Urine 1 /hpf (0-5); Specific Gravity,Urine 1.033 (1.001-1.035); Squamous Epithelial Cell,Urine 6 /hpf (0-4); WBC,Urine 18 /hpf (0-5)
[2018-10-16 21:40] VITALS: BP 139/79; PULSE 90; RESP 18; TEMP 97.1
--- NOTE | 2018-10-17 05:24 | P.MSEPDOC ---
Presenting Problems - Arrival Data Date of Arrival on Unit: 10/16/18 Time of Arrival on Unit: 20:30 Mode of Transport: Ambulatory - Complaint OB-Reason for Admission/Chief Complaint: Decreased Movement, Pain Comment: decreased movement, cramping and lower back pain Medical History - Information : 1 Para: 0 Term: 0 : 0 Abortions: Spontaneous or Elective: 0 Number of Living Children: 0 - Gestational Age Gestational Age by NEGIN (wks/days): 28 Weeks and 6 Days Review of Systems - Review of Systems Constitutional: No problems Breast: No problems ENT: No problems Cardiovascular: No problems Respiratory: No problems Gastrointestinal: No problems Genitourinary: No problems Musculoskeletal: No problems Neurological: No problems Skin: No problems Vital Signs - Temperature Temperature: 97.1 F Temperature Source: Temporal Artery Scan - Pulse Right Brachial Pulse Rate: 90 Pulse Assessment Method: Automatic Cuff - Respirations Respiratory Rate: 18 Oxygen Delivery Method: Room Air O2 Sat by Pulse Oximetry: 98 - Blood Pressure Right Arm Blood Pressure: 139/79 Blood Pressure Mean: 99 Blood Pressure Source: Automatic Cuff Medical Screen Scoring (Pre) - Cervical Exam Dilation: 0 cm = 0 Effacement: Exam Deferred Membranes: Intact - Uterine Contractions Frequency: N/A Duration: N/A Intensity: N/A - Maternal Vital Signs Maternal Temperature: N/A Signs of Preeclampsia: N/A Maternal Respirations: N/A - Pain Assessment Pain Location and Character: Back, Abdomen Pain Scale Used: Numeric (1 - 10) Pain Intensity: 3 Pain Description: *Acute, Cramping Pain Radiation Location: none Pain Frequency: Intermittent Pain Behavior: Vocalization - Maternal Trauma Maternal Trauma: N/A - Assessment Baseline FHR: 125 Heart Rate - NICHD Category: Category I (Normal) = 0 NST: Reactive Position: N/A Station: N/A - Total Score Total Score (Pre): 0 - Level of Risk Level of Risk: Low (0-5) Physician Notification (Pre) - Physician Notified Physician Notified Date: 10/16/18 Physician Notified Time: 21:22 Physician/Practitioner Notifed:: Dr. Sexton Spoke With: Dr. Sexton New Order Received: Yes - Notification Comment Comment: send ua for culture and have pt call office on Friday for results, november discharge pt home Disposition - Disposition OB Disposition: Triage, Discharge to home, Written follow up instructions reviewed Discharge Date: 10/16/18 Discharge Time: 21:34 I agree with the RN Medical Screening Exam: Yes Risk & Benefit of care provided described in d/c instruction: Yes Diagnosis: DECREASED MOVEMENTS, THIRD TRIMESTER, UNSP
== END 2018-10-16 21:34 | disposition home or self-care (01) ==
LOC: FBPOP 20:30
PROVIDERS: ATTEND Obstetrics & Gynecology
DX: O36.8130 Decreased fetal movements, third trimester, not applicable or unspecified (principal); Z3A.28 28 weeks gestation of pregnancy
CPT/HCPCS: 59025; 81001; 87086; G0463; 99213

== ENCOUNTER 2018-11-28 20:03 | Outpatient (CLI) | payer OTHER ==
[2018-11-28 20:41] VITALS: BP 114/70; PULSE 77; RESP 16; TEMP 97.2
--- NOTE | 2018-11-29 03:35 | P.MSEPDOC ---
Presenting Problems - Arrival Data Date of Arrival on Unit: 11/28/18 Time of Arrival on Unit: 20:03 Mode of Transport: Ambulatory - Complaint OB-Reason for Admission/Chief Complaint: Pain Comment: pelvic pressure Medical History - Information : 1 Para: 0 Term: 0 : 0 Abortions: Spontaneous or Elective: 0 Number of Living Children: 0 - Gestational Age Gestational Age by NEGIN (wks/days): 35 Weeks and 0 Days Review of Systems - Review of Systems Constitutional: No problems Breast: No problems ENT: No problems Cardiovascular: No problems Respiratory: No problems Gastrointestinal: No problems Genitourinary: No problems Musculoskeletal: No problems Neurological: No problems Skin: No problems Vital Signs - Temperature Temperature: 97.2 F Temperature Source: Temporal Artery Scan - Pulse Right Sitting Brachial Pulse Rate: 77 Pulse Assessment Method: Automatic Cuff - Respirations Respiratory Rate: 16 Oxygen Delivery Method: Room Air O2 Sat by Pulse Oximetry: 95 - Blood Pressure Right Arm Sitting Blood Pressure: 114/70 Blood Pressure Mean: 84 Blood Pressure Source: Automatic Cuff Medical Screen Scoring (Pre) - Cervical Exam Dilation: 1-3 cm = 1 Membranes: Intact - Uterine Contractions Frequency: N/A Duration: N/A Intensity: N/A - Maternal Vital Signs Maternal Temperature: N/A Maternal Blood Pressure: N/A Signs of Preeclampsia: N/A Maternal Respirations: N/A - Assessment Baseline FHR: 120 Heart Rate - NICHD Category: Category I (Normal) = 0 NST: Reactive Position: N/A Station: N/A - Total Score Total Score (Pre): 1 - Level of Risk Level of Risk: Low (0-5) Medical Screen Scoring (Post) - Uterine Contractions Frequency: N/A Duration: N/A Intensity: N/A - Assessment Heart Rate: 115 Heart Rate - NICHD Category: Category I (Normal) = 0 NST: Reactive - Total Score Total Score (Post): 0 - Post Treatment Level of Risk Post Treatment Level of Risk: Low (0-5) Physician Notification (Post) - Physician Notified Physician Notified Date: 11/28/18 Physician Notified Time: 20:49 Spoke With: Susanne Allison Order Received: Yes (discharge with instruction) Disposition - Disposition OB Disposition: Discharge to home, Written follow up instructions reviewed Discharge Date: 11/28/18 Discharge Time: 20:55 I agree with the RN Medical Screening Exam: Yes Risk & Benefit of care provided described in d/c instruction: Yes Diagnosis: FALSE LABOR BEFORE 37 COMPLETED WEEKS OF GEST, THIRD TRI
== END 2018-11-28 20:55 ==
LOC: FBPOP 20:03
PROVIDERS: ATTEND Obstetrics & Gynecology
DX: O47.03 False labor before 37 completed weeks of gestation, third trimester (principal); Z3A.35 35 weeks gestation of pregnancy
CPT/HCPCS: 59025; G0463; 99213

== ENCOUNTER 2018-12-16 10:43 | Outpatient (CLI) | payer OTHER ==
[2018-12-16 11:43] VITALS: BP 137/80; PULSE 90; RESP 16; TEMP 98
[2018-12-16 12:16] LABS: Basophils % (A) 0 %; Eosinophils # (A) 0.1 k/uL (0-0.7); Eosinophils % (A) 1 %; HCT 39.4 % (34.0-46.0); HGB 12.3 gm/dL (11.4-16.0); Lymphocytes # (A) 1.8 k/uL (1.0-4.8); Lymphocytes % (A) 21 %; MCH 27.3 pg (25.0-35.0); MCHC 31.2 g/dL (31.0-37.0); MCV 87.5 fL (80.0-100.0); Mean Platelet Volume 8.5; Monocytes # (A) 0.5 k/uL (0-1.0); Monocytes % (A) 6 %; Neutrophils # (A) 6.1 k/uL (1.3-7.7); Neutrophils % (A) 71 %; Platelet Count 162 k/uL (150-450); RDW 14.6 % (11.5-15.5); WBC 8.6 k/uL (3.8-10.6)
[2018-12-16 12:20] LABS: ALT 10 U/L (9-52); AST 19 U/L (14-36); African American GFR (CKD) >90 (>60 ml/min/1.73 sqM); Blood Urea Nitrogen 8 mg/dL (7-17); LDH 394 U/L (313-618); Uric Acid 5.5 mg/dL (3.7-7.4)
--- NOTE | 2018-12-16 12:34 | US ---
EXAMINATION TYPE: US OB >= 14 wk fetus DATE OF EXAM: 12/16/2018 COMPARISON: None CLINICAL HISTORY: PIH TECHNIQUE: Transabdominal (TA) GESTATIONAL AGE / DATING Physician Established: (37 weeks/4 days) EDC: 01/09/19 Dates by LMP: (37 weeks/4 days) EDC: 01/09/19 Dates by First Scan: (37 weeks/ 1 days) EDC: 01/05/19 Dates by Current Scan: (36 weeks/4 days) EDC: 01/09/19 SURVEY IUP: Single PLACENTA: Anterior PREVIA: No Previa ALANNA: 17.2 cm CERVICAL LENGTH (transabdominal: norm > 3.0cm): 2.8 cm CERVICAL LENGTH (transvaginal: norm> 2.5cm): not needed per Dr. Escalona BIOMETRY PRESENTATION: Vertex BPD: 9.0 cm 36 weeks / 4 days HC: 32.8 cm 35 weeks / 1 days AC: 31.2 cm 35 weeks / 1 days FL: 7.4 cm 37 weeks / 5 days ESTIMATED WEIGHT IN GRAMS: 2879 grams ESTIMATED WEIGHT IN LBS/OZ: 6 lbs. 6 oz. WEIGHT PERCENTAGE BASED ON ESTABLISHED DATES: 25% HC/AC: 1.1 FL/AC: 23.6 HEART RATE: 133 bpm RHYTHM: Normal IMPRESSION: Single viable intrauterine corresponding to 36 weeks 4day with NEGIN 01/09/2019
[2018-12-16 12:47] LABS: Appearance,Urine Cloudy (Clear); Bacteria,Urine Occasional /hpf; Bilirubin,Urine Negative (Negative); Blood,Urine Negative (Negative); Color,Urine Yellow; Glucose,Urine (UA) Negative (Negative); Ketones,Urine Negative (Negative); Leukocyte Esterase,Urine Large (Negative); Mucus,Urine Few /hpf; Nitrite,Urine Negative (Negative); Protein,Urine Trace (Negative); RBC,Urine 1 /hpf (0-5); Specific Gravity,Urine 1.032 (1.001-1.035); Squamous Epithelial Cell,Urine 4 /hpf (0-4); Urobilinogen,Urine <2.0 mg/dL (<2.0); WBC,Urine 27 /hpf (0-5)
--- NOTE | 2018-12-26 12:06 | P.MSEPDOC ---
Presenting Problems - Arrival Data Date of Arrival on Unit: 12/16/18 Time of Arrival on Unit: 10:50 Mode of Transport: Portable - Complaint OB-Reason for Admission/Chief Complaint: PIH Comment: with script from Dr. Escalona Medical History - Information : 1 Para: 0 Term: 0 : 0 Abortions: Spontaneous or Elective: 0 Number of Living Children: 0 - Gestational Age Gestational Age by NEGIN (wks/days): 37 Weeks and 4 Days Vital Signs - Temperature Temperature: 98 F Temperature Source: Temporal Artery Scan - Pulse Right Brachial Pulse Rate: 90 Pulse Assessment Method: Automatic Cuff - Respirations Respiratory Rate: 16 Oxygen Delivery Method: Room Air O2 Sat by Pulse Oximetry: 98 - Blood Pressure Right Arm Blood Pressure: 137/80 Blood Pressure Mean: 99 Blood Pressure Source: Automatic Cuff Medical Screen Scoring (Pre) - Cervical Exam Dilation: Exam Deferred Effacement: Exam Deferred - Uterine Contractions Frequency: N/A Duration: N/A Intensity: N/A - Maternal Vital Signs Maternal Temperature: N/A Maternal Blood Pressure: N/A Signs of Preeclampsia: N/A Maternal Respirations: N/A - Assessment - Baby A Baseline FHR: 135 Heart Rate - NICHD Category: Category I (Normal) = 0 NST: Reactive Position: N/A Station: N/A - Total Score - Baby A Total Score - Baby A: 0 - Level of Risk - Baby A Level of Risk - Baby A: Low (0-5) Physician Notification (Pre) - Physician Notified Spoke With: evita New Order Received: Yes - Notification Comment Comment: disch home to keep next sched appt Medical Screen Scoring (Post) - Cervical Exam Dilation: Exam Deferred Effacement: Exam Deferred Membranes: Intact - Uterine Contractions Duration: N/A Intensity: N/A - Maternal Vital Signs Maternal Temperature: N/A Maternal Blood Pressure: N/A Signs of Preeclampsia: N/A Maternal Respirations: N/A - Maternal Trauma Maternal Trauma: N/A - Assessment - Baby A Heart Rate - NICHD Category: Category I (Normal) = 0 Position: N/A Station: N/A - Total Score Total Score - Baby A: 0 - Post Treatment Level of Risk Post Treatment Level of Risk - Baby A: Low (0-5) Physician Notification (Post) - Physician Notified Physician Notified Date: 12/16/18 Physician Notified Time: 12:43 Spoke With: evita New Order Received: Yes - Notification Comment Comment: discharge home. to keep next sched appt with dr escalona Disposition - Disposition OB Disposition: Discharge to home Discharge Date: 12/16/18 Discharge Time: 12:43 I agree with the RN Medical Screening Exam: Yes Risk & Benefit of care provided described in d/c instruction: Yes Diagnosis: GESTATIONAL HTN W/O SIGNIFICANT PROTEINURIA, THIRD TRIMESTER
== END 2018-12-16 13:00 | disposition home or self-care (01) ==
LOC: FBPOP 10:43
PROVIDERS: ATTEND Obstetrics & Gynecology
DX: O13.3 Gestational [pregnancy-induced] hypertension without significant proteinuria, third trimester (principal); Z3A.37 37 weeks gestation of pregnancy
CPT/HCPCS: 59025; 82570; 84156; 82565; 83615; 84450; 84460; 84520; 84550; 85025; 81001; 76805; G0463; 99215

== ENCOUNTER 2018-12-27 13:55 | Inpatient (IN) | payer OTHER ==
[2018-12-27] MEDS ORDERED: OXYTOCIN 10 UNIT/ML 1 ML VIAL IM PRN (14:27)
[2018-12-27] MEDS ORDERED: CARBOPROST TROMETHAMINE 250 MCG/ML 1 ML AMP IM PRN (14:27)
[2018-12-27] MEDS ORDERED: TERBUTALINE 1 MG/ML VIAL SQ PRN (14:27)
[2018-12-27] MEDS ORDERED: METHYLERGONOVINE 0.2 MG/ML 1 ML AMP IM PRN (14:27)
[2018-12-27] MEDS ORDERED: LIDOCAINE 0.5% (PF) 5 MG/ML (50 ML SDV) SQ PRN (14:27)
[2018-12-27] MEDS ORDERED: OXYTOCIN 30 UNITS/500 ML NS 30 UNIT in SALINE 1 500ML.BAG IV SCH (14:30)
[2018-12-27] MEDS ORDERED: AMPICILLIN 2,000 MG in SODIUM CHLORIDE 0.9% 100 ML IVPB STA (14:30)
[2018-12-27] MEDS: LACTATED RINGERS 1,000 ML IV SCH ×2 (14:57→17:43)
[2018-12-27 15:17] LABS: Basophils % (A) 0 %; Eosinophils # (A) 0.1 k/uL (0-0.7); Eosinophils % (A) 1 %; HCT 37.5 % (34.0-46.0); HGB 12.1 gm/dL (11.4-16.0); Lymphocytes # (A) 1.9 k/uL (1.0-4.8); Lymphocytes % (A) 23 %; MCH 27.9 pg (25.0-35.0); MCHC 32.2 g/dL (31.0-37.0); MCV 86.7 fL (80.0-100.0); Mean Platelet Volume 8.3; Monocytes # (A) 0.5 k/uL (0-1.0); Monocytes % (A) 6 %; Neutrophils # (A) 5.8 k/uL (1.3-7.7); Neutrophils % (A) 68 %; Platelet Count 181 k/uL (150-450); RBC 4.33 m/uL (3.80-5.40); RDW 14.6 % (11.5-15.5); WBC 8.5 k/uL (3.8-10.6)
[2018-12-27 15:33] VITALS: BMI 44.2
[2018-12-27] MEDS ORDERED: SODIUM CHLORIDE 0.9% 100 ML BAG ONE (17:15)
[2018-12-27] MEDS ORDERED: ROPIVACAINE 5MG/ML 20ML VIAL ONE (17:15)
[2018-12-27] MEDS ORDERED: fentaNYL (PF) 50 MCG/ML 5 ML AMP ONE (17:15)
[2018-12-27] MEDS ORDERED: AMPICILLIN 1,000 MG in SODIUM CHLORIDE 0.9% 50 ML IVPB SCH (18:30)
[2018-12-27] MEDS ORDERED: ACETAMINOPHEN TAB 325 MG TAB PO PRN (20:24)
[2018-12-27] MEDS ORDERED: diphenhydrAMINE 25 MG CAP PO PRN (20:24)
[2018-12-27] MEDS ORDERED: BENZOCAINE/MENTHOL SPRAY 1 GM/SPRAY AEROSOL TOPICAL PRN (20:24)
[2018-12-27] MEDS ORDERED: LANOLIN CREAM 5 GM TUBE TOPICAL PRN (20:24)
[2018-12-27] MEDS ORDERED: SIMETHICONE 80 MG CHEWABLE PO PRN (20:24)
[2018-12-27] MEDS ORDERED: diphenhydrAMINE 50 MG CAP PO PRN (20:24)
[2018-12-27] MEDS ORDERED: ZOLPIDEM 5 MG TAB PO PRN (20:24)
[2018-12-27] MEDS ORDERED: diphenhydrAMINE 50 MG/ML 1 ML VIAL IVP PRN ×2 (20:24)
[2018-12-27] MEDS ORDERED: WITCH HAZEL 1 EACH MED..PAD TOPICAL PRN (20:24)
[2018-12-27] MEDS ORDERED: HYDROcodone/APAP 5-325MG 1 EACH TAB PO PRN (20:24)
[2018-12-27] MEDS ORDERED: HYDROCORTISONE 2.5% RECTAL CREAM 30 GM TUBE RECTAL PRN (20:24)
--- NOTE | 2018-12-27 20:27 | P.HPOB ---
History of Present Illness H&P Date: 12/27/18 Chief Complaint: Intrauterine at term: Labor Patient is a 23-year-old at 39 weeks gestation arrives dilated to 6 cm making cervical change and ignacia irregularly. Her course was generally unremarkable although she did have one episode of elevated blood pressures at approximately 36 weeks she's been followed closely since that point and has had no further changes in her blood pressure. Pertinent labs could A+ blood type, Rh antibody was reactive, rubella/B surface antigen were both negative, GBS is positive. On physical exam vital signs are stable and she is currently afebrile. A category 1 tracing is noted. Heart regular, lungs clear, extremities without pain. Abdomen soft gravid uterus is noted. Assessment intrauterine at term. Plan expect spontaneous vaginal delivery. She anticipates use of an epidural for analgesia. Past Medical History Past Medical History: Asthma, GERD/Reflux, Skin Disorder Additional Past Medical History / Comment(s): HEART MURMUR, ASTHMA CHILD. CYSTS RT LOWER BREAST, LT LOWER ABD. Obstetric history: This is her first and she's having care with Dr. Escalona. History of Any Multi-Drug Resistant Organisms: None Reported Past Surgical History: Tonsillectomy Additional Past Surgical History / Comment(s): EGD. Past Anesthesia/Blood Transfusion Reactions: No Reported Reaction Past Psychological History: Anxiety, Depression Smoking Status: Never smoker Past Alcohol Use History: None Reported Past Drug Use History: None Reported - Past Family History Mother Family Medical History: No Reported History Medications and Allergies Home Medications Medication Instructions Recorded Confirmed Type Pnv No.95/Ferrous Fum/Folic AC 1 tab PO HS 08/09/18 12/27/18 History [ Multivitamin Tablet] Allergies Allergy/AdvReac Type Severity Reaction Status Date / Time prednisone Allergy Rash/Hives Verified 12/16/18 10:56 Exam Osteopathic Statement: *. No significant issues noted on an osteopathic structural exam other than those noted in the History and Physical/Consult. Vital Signs Temp Pulse Resp BP Pulse Ox 12/27/18 14:56 97.8 F 82 18 136/83 98 12/27/18 14:14 96.7 F L 78 18 133/87 98 Intake and Output 12/27/18 12/27/18 12/27/18 06:59 14:59 22:59 Other: Weight 113.398 kg Results Result Diagrams: 12/27/18 14:54
--- NOTE | 2018-12-27 20:28 | P.PROBDLV ---
Vaginal Delivery Note - . Vaginal Delivery Note: Patient progressed complete and pushing with spontaneous vaginal delivery of a viable male over a second degree perineal laceration. Following delivery of the head from left occiput anterior position anterior posterior shoulders were easily delivered with gentle downward and upward traction followed by the remainder of the baby. Mouth and nares were then bulb suctioned and baby was placed on mother's abdomen where the umbilical cord was allowed to pulsate for 40 seconds prior to clamping and cutting. Once this was accomplished nursery personnel assume care. Placenta was then delivered intact Pitocin was added to the IV. Secondary midline laceration was repaired with 3-0 Vicryl following 1% Xylocaine for for analgesia in usual fashion. Was a right labial avulsion that was not bleeding we did discuss this I offered repaired she declined. scores were 8 and 9 at one and 5 minutes respectively and weight was 6 lbs. 7 oz. Both mother and baby are stable following delivery.
[2018-12-27] MEDS ORDERED: OXYTOCIN 20 UNITS/1000 ML NS 1,000 ML IV SCH (20:30)
[2018-12-28] MEDS: IBUPROFEN 600 MG TAB PO PRN ×3 (00:28→17:01)
--- NOTE | 2018-12-28 07:45 | P.PNOBGVD ---
Subjective - Subjective Principal diagnosis: Status post normal vaginal delivery day #1 Interval history: Patient seen and examined. Denies nausea, vomiting, chest pain, shortness of breath or calf pain. Patient reports: Reports appetite normal, Reports voiding normally, Reports pain well controlled, Reports ambulating normally [place]: doing well Objective - Latest Vital Signs Latest vital signs: Vital Signs Temp Pulse Resp BP Pulse Ox 12/28/18 03:51 98.2 F 88 16 128/70 12/28/18 00:00 98.8 F 83 16 131/69 97 12/27/18 22:27 98.9 F 78 16 124/61 12/27/18 21:59 98.2 F 93 16 114/55 12/27/18 21:29 98.9 F 88 16 114/55 12/27/18 21:13 98.3 F 82 16 118/60 12/27/18 20:59 98.9 F 79 16 119/56 12/27/18 20:44 97.7 F 97 16 121/57 12/27/18 20:29 97.7 F 88 16 128/73 12/27/18 14:56 97.8 F 82 18 136/83 98 12/27/18 14:14 96.7 F L 78 18 133/87 98 Intake and Output 12/27/18 12/28/18 12/28/18 22:59 06:59 14:59 Output Total 200 2 Balance -200 -2 Output: Urine 200 2 - Exam Lungs: bilateral: normal Chest: Normal S1, Normal S2 Extremities: Present: normal Abdomen: Present: normal appearance, soft Uterus: Present: normal, firm Assessment and Plan (1) Normal vaginal delivery Current Visit: Yes Status: Acute Code(s): O80 - ENCOUNTER FOR FULL-TERM UNCOMPLICATED DELIVERY SNOMED Code(s): 64643522 Plan: 1. Continue care
[2018-12-28] MEDS ORDERED: SENNOSIDES-DOCUSATE SODIUM 1 EACH TAB PO SCH (08:00)
[2018-12-29 00:15] VITALS: RESP 14
[2018-12-29] MEDS: IBUPROFEN 600 MG TAB PO PRN (02:24)
--- NOTE | 2018-12-29 09:13 | P.DS ---
Providers Date of admission: 12/27/18 14:26 Expected date of discharge: 12/29/18 Attending physician: Viral Escalona Primary care physician: Viral Escalona - Discharge Diagnosis(es) (1) Normal vaginal delivery Current Visit: Yes Status: Acute Hospital Course: Patient presented in labor. She underwent a normal vaginal delivery. Her course was uncomplicated. She'll be discharged home day #2 in stable condition to follow-up with Dr. Escalona in 6 weeks. Plan - Discharge Summary New Discharge Prescriptions: New Ibuprofen [Motrin] 600 mg PO Q6HR PRN #30 tab PRN Reason: Mild Pain Or Fever >= 100.5 No Action Pnv No.95/Ferrous Fum/Folic AC [ Multivitamin Tablet] 1 tab PO HS Discharge Medication List Pnv No.95/Ferrous Fum/Folic AC [ Multivitamin Tablet] 1 tab PO HS 08/09/18 [History] Ibuprofen [Motrin] 600 mg PO Q6HR PRN #30 tab 12/29/18 [Rx] Follow up Appointment(s)/Referral(s): Viral Escalona DO [Primary Care Provider] - 6 Weeks Discharge Disposition: HOME SELF-CARE
[2018-12-29 11:01] VITALS: BP 129/78; PULSE 73; TEMP 97.9
== END 2018-12-29 14:50 | disposition home or self-care (01) | DRG 807 ==
LOC: FBPOP 13:55 → 4FBP 14:26
PROVIDERS: ADMIT Obstetrics & Gynecology; ATTEND Obstetrics & Gynecology
PROC: 10E0XZZ Delivery of Products of Conception, External Approach (ICD-10-PCS; principal; 2018-12-27)
PROC: 0KQM0ZZ Repair Perineum Muscle, Open Approach (ICD-10-PCS; 2018-12-27)
PROC: 00HU33Z Insertion of Infusion Device into Spinal Canal, Percutaneous Approach (ICD-10-PCS; 2018-12-27)
PROC: 3E0R3BZ Introduction of Anesthetic Agent into Spinal Canal, Percutaneous Approach (ICD-10-PCS; 2018-12-27)
DX: O70.1 Second degree perineal laceration during delivery (principal); Z37.0 Single live birth; Z3A.39 39 weeks gestation of pregnancy; O99.52 Diseases of the respiratory system complicating childbirth; K21.9 Gastro-esophageal reflux disease without esophagitis; O99.62 Diseases of the digestive system complicating childbirth; J45.909 Unspecified asthma, uncomplicated; Z79.899 Other long term (current) drug therapy; Z98.890 Other specified postprocedural states; Z86.59 Personal history of other mental and behavioral disorders; Z88.8 Allergy status to other drugs, medicaments and biological substances
CPT/HCPCS: 59025; 85025; 86850; 86900; 86901; 99213

== ENCOUNTER → 2024-04-29 | Outpatient (CLI) | payer OTHER ==
--- NOTE | 2024-04-29 12:24 | US ---
EXAMINATION TYPE: US gallbladder DATE OF EXAM: 04/29/2024 COMPARISON: CT abdomen and pelvis 06/26/2016 CLINICAL INDICATION: Female, 28 years old with history of R10.11 ABD PAIN; RUQ pain TECHNIQUE: Grayscale and color Doppler imaging of the right upper quadrant was performed. FINDINGS: EXAM MEASUREMENTS: Liver Length: 15.0 cm Gallbladder Wall: 0.2 cm CBD: 0.4 cm Right Kidney: 9.6 x 4.9 x 4.8 cm Pancreas: wnl Liver: wnl Gallbladder: Echogenic focus - Evidence for sonographic Dao's sign: neg CBD: wnl Right Kidney: No hydronephrosis or masses seen The visualized portions of the pancreas unremarkable. Liver is unremarkable without focal lesion. Cho lelithiasis with a 1.3 cm calculus within the gallbladder neck. Negative sonographic Dao sign. No wall thickening or surrounding fluid. Common bile duct is within normal limits. Right kidney demonstr ates no hydronephrosis, nephrolithiasis, or solid mass. IMPRESSION: Cholelithiasis without evidence for acute cholecystitis. [facility], , 04/29/2024 12:22 PM
== END | disposition home or self-care (01) ==
LOC: RADUSWWP 07:23
PROVIDERS: ATTEND Family Medicine
CPT/HCPCS: 76705